=== PATIENT | male | born 1940 | race Hispanic/Latino ===

== ENCOUNTER 2017-09-05 11:37 | Emergency (ER) | payer MEDICARE ==
[~2017-09-05] VITALS: Ht 165.1 cm; Wt 64.0 kg
[~2017-09-05 11:37] MED LIST: BLOOD SUGAR MED; CARVEDILOL12.5 MG PO; DEXILANT; DEXILANT60 MG PO; FLOMAX0.4 MG PO; GABAPENTIN300 MG PO; Janumet PO; LANTUS100 UNIT/2 SQ; LEVAQUIN500 MG PO; SIMVASTATIN40 MG PO; TYLENOL WITH C1 EACH PO; Z.0.FOLIC ACID1 MG PO; Z.0.METHOTREXATE2.5 PO; Z.1.FERROUS SULFAT32 PO
[2017-09-05] MEDS ORDERED: SODIUM CHLORIDE 0.9% 1000ML 1,000 ML IV ONE ×2 (12:00→13:45)
[2017-09-05] MEDS ORDERED: MEROPENEM 1GM 100 ML IV ONE (12:15)
[2017-09-05 12:24] LABS: BASOPHILS % 0.2 % (0.0-1.0); HEMATOCRIT 30.8 % (38.2-49.6); HEMOGLOBIN 10.2 g/dL (14.0-18.0); LYMPHOCYTES # (AUTO) 0.7 (1.0-3.2); LYMPHOCYTES % 12.2 % (18.0-39.1); MEAN CORPUSCULAR HEMOGLOBIN 29.3 pg (28-32); MEAN CORPUSCULAR HGB CONC 33.1 g/dL (31-35); MEAN CORPUSCULAR VOLUME 88.5 fL (81-99); MONOCYTES # (AUTO) 0.3 (0.2-0.8); MONOCYTES % 5.9 % (4.4-11.3); NEUTROPHILS # (AUTO) 4.7 (2.1-6.9); NEUTROPHILS % 81.4 % (38.7-80.0); PLATELET COUNT 165 x10e3/uL (140-360); RED BLOOD COUNT 3.48 x10e6/uL (4.3-5.7); RED CELL DISTRIBUTION WIDTH 13.8 % (11.7-14.4)
[2017-09-05 12:41] LABS: ALANINE AMINOTRANSFERASE 19 IU/L (0-55); ALBUMIN 2.8 g/dL (3.5-5.0); ALBUMIN/GLOBULIN RATIO 0.7 (0.8-2.0); ALKALINE PHOSPHATASE 75 IU/L (40-150); ANION GAP 12.4 mmol/L (8-16); BLOOD UREA NITROGEN 11 mg/dL (7-26); BUN/CREATININE RATIO 13 (6-25); CALCIUM 9.2 mg/dL (8.4-10.2); CARBON DIOXIDE 20 mmol/L (22-29); CHLORIDE 104 mmol/L (98-107); CHOL/HDL RATIO 2.9 (3.9-4.7); CHOLESTEROL 99 MD/DL (0-199); CREATININE, SERUM 0.88 mg/dL (0.72-1.25); EST GLOMERULAR FILTRATION RATE > 60 ML/MIN (60-); GLUCOSE 245 mg/dL (74-118); HDL CHOLESTEROL 34 MG/DL (40-60); LDL CHOLESTEROL 48 MG/DL (60-130); POTASSIUM 3.4 mmol/L (3.5-5.1); SODIUM 133 mmol/L (136-145); TRIGLYCERIDES 83 MG/DL (0-149)
[2017-09-05] MEDS ORDERED: MEROPENEM 1 GM VIAL IV SCH ×2 (12:45→13:00)
[2017-09-05 13:13] LABS: HYPOCHROMASIA MODERATE; LYMPHOCYTES % (MANUAL) 9 % (19-48); MONOCYTES % (MANUAL) 6 % (3.4-9.0); MYELOCYTES % (MANUAL) 1 % (0-0); NEUTROPHILS % (MANUAL) 84 % (40-74); PLATELET ESTIMATE ADEQUATE; PLATELET MORPHOLOGY COMMENT NORMAL; RBC MORPHOLOGY COMMENT NORMAL
[2017-09-05 14:27] LABS: BILIRUBIN,URINE NEGATIVE (NEGATIVE); CLARITY,URINE CLEAR (CLEAR); COLOR,URINE YELLOW (YELLOW); KETONES,URINE TRACE (NEGATIVE); LEUKOCYTE ESTERASE ,URINE NEGATIVE (NEGATIVE); NITRITE,URINE NEGATIVE (NEGATIVE); PROTEIN,URINE DIPSTICK NEGATIVE (NEGATIVE); URINE UROBILINOGEN 0.2 mg/dL (0.2 - 1)
[2017-09-05 14:40] LABS: MUCUS,URINE RARE (RARE); WBC,URINE (MAN) 0-5 /HPF (0-5)
--- NOTE | 2017-09-05 15:56 | Diagnostic Imaging Report ---
History:Fall, hit the head Comparison studies:None Technique: Axial images were obtained from the skull base to the vertex. Coronal and sagittal images reconstructed from the axial data. Intravenous contrast: None Findings: Scalp/skull: No abnormalities. Extra-axial spaces: No masses. No fluid collections. Brain sulci: Moderately prominent. Ventricles: Mild compensatory dilatation. No hydrocephalus. Parenchyma: Few hypodensities in the supratentorial white matter are small vessel ischemic changes. Left subinsular small chronic lacunar infarct No masses, hemorrhage, acute or chronic cortical vascular insults. Sellar/suprasellar region: No abnormalities. Craniocervical junction: Patent foramen magnum. No Chiari one malformation. Incidental findings: Atherosclerotic calcifications in the carotid siphons . Impression: No acute abnormalities. Chronic findings: 1. Moderate generalized volume loss. 2. Mild supratentorial white matter small vessel ischemic changes. Signed by: DR Parth Osorio M.D. on 09/05/2017 3:52 PM
[2017-09-05 16:09] VITALS: BP 108/82
== END 2017-09-05 18:11 | disposition home or self-care (01) ==
LOC: ER 11:37
DX: E86.0 Dehydration (principal); D63.8 Anemia in other chronic diseases classified elsewhere; E87.6 Hypokalemia; E11.9 Type 2 diabetes mellitus without complications; Z79.4 Long term (current) use of insulin; R35.0 Frequency of micturition; R30.0 Dysuria
CPT/HCPCS: 36415; 70450; 80053; 80061; 81001; 83036; 85025; 86850; 86900; 87040; 87086; 99284; J2185 ×2; J7030

== ENCOUNTER 2018-02-13 15:05 | Emergency (ER) | payer MEDICARE ==
[~2018-02-13] VITALS: Ht 165.1 cm; Wt 64.0 kg
--- OUTSIDE RECORDS SUMMARY | 2018-02-13 15:11 | XMS REPORT ---
Author Author [facility] Address Unknown Phone Unavailable Care Team Providers Care Second Grade Teacher Name Role Phone Debra MAGALLON Unavailable Unavailable Problems This patient has no known problems. Allergies, Adverse Reactions, Alerts This patient has no known allergies or adverse reactions. Medications This patient has no known medications. Results Test Description Test Time Test Comments Text Results Atomic Results Result Comments CT BRAIN WO [place] [address] Patient Name: MIKKI MELGAR MR #: [id number] : 1940 Age/Sex: 77/M Req #: [id number] Adm Physician: Ordered by: MARK MAGALLON MD Report #: [id number] Location: ER Room/Bed: Procedure: [id number] CT/CT BRAIN WO Exam Date: Exam Time: REPORT STATUS: Signed History:Fall, hit the head Comparison studies:None Technique: Axial images were obtained from the skull base to the vertex. Coronal and sagittal images reconstructed from the axial data. Intravenous contrast: None Findings: Scalp/skull: No abnormalities. Extra-axial spaces: No masses. No fluid collections. Brain sulci: Moderately prominent. Ventricles: Mild compensatory dilatation. No hydrocephalus. Parenchyma: Few hypodensities in the supratentorial white matter are small vessel ischemic changes. Left subinsular small chronic lacunar infarct No masses, hemorrhage, acute or chronic cortical vascular insults. Sellar/suprasellar region: No abnormalities. Craniocervical junction: Patent foramen magnum. No Chiari one malformation. Incidental findings: Atherosclerotic calcifications in the carotid siphons . Impression: No acute abnormalities. Chronic findings: 1. Moderate generalized volume loss. 2. Mild supratentorial white matter small vessel ischemic changes. Signed by: DR Parth Osorio M.D. on 09/05/2017 3:52 PM Dictated By: PARTH NGUYỄN MD [id number] Transcribed By: CALEB on 09/05/17 0249 COPY TO: MARK MAGALLON MD
[2018-02-13 17:33] LABS: BASOPHILS % 0.3 % (0.0-1.0); EOSINOPHILS # (AUTO) 0.2 (0.0-0.4); EOSINOPHILS % 2.7 % (0.0-6.0); HEMATOCRIT 29.3 % (38.2-49.6); HEMOGLOBIN 9.3 g/dL (14.0-18.0); LYMPHOCYTES # (AUTO) 2.7 (1.0-3.2); LYMPHOCYTES % 35.3 % (18.0-39.1); MEAN CORPUSCULAR HEMOGLOBIN 26.6 pg (28-32); MEAN CORPUSCULAR HGB CONC 31.7 g/dL (31-35); MEAN CORPUSCULAR VOLUME 83.7 fL (81-99); MONOCYTES # (AUTO) 0.5 (0.2-0.8); MONOCYTES % 6.9 % (4.4-11.3); NEUTROPHILS # (AUTO) 4.2 (2.1-6.9); NEUTROPHILS % 54.4 % (38.7-80.0); PLATELET COUNT 253 x10e3/uL (140-360); RED CELL DISTRIBUTION WIDTH 15.9 % (11.7-14.4)
[2018-02-13 17:48] LABS: ALANINE AMINOTRANSFERASE 17 IU/L (0-55); ALBUMIN 3.9 g/dL (3.5-5.0); ALKALINE PHOSPHATASE 111 IU/L (40-150); ANION GAP 13.2 mmol/L (8-16); BLOOD UREA NITROGEN 12 mg/dL (7-26); BUN/CREATININE RATIO 15 (6-25); CALCIUM 9.7 mg/dL (8.4-10.2); CARBON DIOXIDE 24 mmol/L (22-29); CHLORIDE 104 mmol/L (98-107); CREATINE KINASE 64 IU/L (30-200); EST GLOMERULAR FILTRATION RATE > 60 ML/MIN (60-); GLUCOSE 113 mg/dL (74-118); POTASSIUM 4.2 mmol/L (3.5-5.1); SODIUM 137 mmol/L (136-145)
--- NOTE | 2018-02-13 19:00 | Diagnostic Imaging Report ---
EXAMINATION: CHEST 2 VIEWS INDICATION: Left mid and lower back pain and pelvic pain. ^fall ^[id number] ^[id number] COMPARISON: None FINDINGS: PA and lateral views TUBES and LINES: None. LUNGS: Lungs are well inflated. Lungs are clear. There is no evidence of pneumonia or pulmonary edema. PLEURA: No pleural effusion or pneumothorax. HEART AND MEDIASTINUM: The cardiomediastinal silhouette is unremarkable. BONES AND SOFT TISSUES: No acute osseous lesion. Soft tissues are unremarkable. UPPER ABDOMEN: No free air under the diaphragm. There are cholecystectomy clips. IMPRESSION: No acute thoracic abnormality. Signed by: DR. José Miguel Mark MD on 02/13/2018 6:56 PM
[2018-02-13 20:52] VITALS: BP 171/81
[2018-03-18] MEDS ORDERED: GLIPIZIDE ER10 MG PO (11:24)
[2018-03-18] MEDS ORDERED: ALLEGRA ALLERGY60 MG PO (11:24)
[2018-03-18] MEDS ORDERED: LIPITOR10 MG PO (11:25)
[2018-03-18] MEDS ORDERED: LANTUS 3ML100 UNITS/ SQ (11:25)
[2018-03-18] MEDS ORDERED: LOSARTAN POTASS50 MG PO (11:26)
[2018-03-18] MEDS ORDERED: MAGNESIUM OXID500 MG PO (11:26)
[2018-03-18] MEDS ORDERED: METFORMIN HCL1000 MG PO (11:27)
[2018-03-18] MEDS ORDERED: TRAZODONE HCL50 MG PO (11:27)
== END 2018-02-13 20:56 | disposition home or self-care (01) ==
LOC: ER 15:05
DX: R05 Cough (principal); K59.00 Constipation, unspecified; E11.9 Type 2 diabetes mellitus without complications; E78.5 Hyperlipidemia, unspecified; M54.9 Dorsalgia, unspecified; G89.29 Other chronic pain; Z85.46 Personal history of malignant neoplasm of prostate
CPT/HCPCS: 36415; 71046; 80053; 82550; 82553; 84484; 85025; 93005; 99284

== ENCOUNTER → 2018-03-19 | Day surgery (SDC) | payer MEDICARE ==
[2018-03-18 11:45] LABS: BASOPHILS % 0.3 % (0.0-1.0); EOSINOPHILS # (AUTO) 0.1 (0.0-0.4); EOSINOPHILS % 0.7 % (0.0-6.0); HEMATOCRIT 30.4 % (38.2-49.6); HEMOGLOBIN 9.7 g/dL (14.0-18.0); LYMPHOCYTES # (AUTO) 2.3 (1.0-3.2); LYMPHOCYTES % 31.8 % (18.0-39.1); MEAN CORPUSCULAR HEMOGLOBIN 26.7 pg (28-32); MEAN CORPUSCULAR HGB CONC 31.9 g/dL (31-35); MEAN CORPUSCULAR VOLUME 83.7 fL (81-99); MONOCYTES # (AUTO) 0.4 (0.2-0.8); MONOCYTES % 6.2 % (4.4-11.3); NEUTROPHILS # (AUTO) 4.3 (2.1-6.9); NEUTROPHILS % 60.7 % (38.7-80.0); PLATELET COUNT 217 x10e3/uL (140-360); RED BLOOD COUNT 3.63 x10e6/uL (4.3-5.7); RED CELL DISTRIBUTION WIDTH 17.5 % (11.7-14.4)
[2018-03-18 12:01] LABS: ANION GAP 15.3 mmol/L (8-16); BLOOD UREA NITROGEN 14 mg/dL (7-26); BUN/CREATININE RATIO 17 (6-25); CALCIUM 9.8 mg/dL (8.4-10.2); CARBON DIOXIDE 23 mmol/L (22-29); CHLORIDE 105 mmol/L (98-107); CREATININE, SERUM 0.81 mg/dL (0.72-1.25); EST GLOMERULAR FILTRATION RATE > 60 ML/MIN (60-); GLUCOSE 117 mg/dL (74-118); POTASSIUM 4.3 mmol/L (3.5-5.1); SODIUM 139 mmol/L (136-145)
--- NOTE | 2018-03-18 12:26 | Diagnostic Imaging Report ---
EXAM: CHEST 2 VIEWS, PA and lateral DATE: 03/18/2018 11:17 AM Time stamp on exam: 11:25 AM INDICATION: Preoperative COMPARISON: None FINDINGS: LINES/TUBES: None LUNGS: No consolidations or edema. PLEURA: No effusions or pneumothorax. HEART AND MEDIASTINUM: Normal size and contour. Tortuous thoracic aorta. BONES AND SOFT TISSUES: No acute findings. IMPRESSION: No acute thoracic abnormality. Signed by: Dr. Vijay Zaldivar DO on 03/18/2018 12:23 PM
[~2018-03-19] MED LIST changes: +ALLEGRA ALLERGY60 MG PO; +BELLADONNA/OPIUM 60 MG SUPP PR ONE; +BOTULINUM TOXIN TYPE A 100 UNIT VIAL IM ONE; +CEFTRIAXONE SOD 1 GM VIAL ONE; +FENTANYL CITRATE/PF 100MCG/2 ML INJ ONE; +GLIPIZIDE ER10 MG PO; +HYDRALAZINE HCL 20 MG/ML VIAL ONE; +IOPAMIDOL 610MG/1ML 300 MG/ML VIAL IV ONE; +LANTUS 3ML100 UNITS/ SQ; +LIDOCAINE HCL 2% LOCAL INJ 5 ML SDV VIAL INJ ONE; +LIPITOR10 MG PO; +LOSARTAN POTASS50 MG PO; +MAGNESIUM OXID500 MG PO; +METFORMIN HCL1000 MG PO; +ONDANSETRON HCL INJ 2 MG/ML VIAL ONE; +PROPOFOL IV EMULSION 10 MG/ML 20 ML VIAL ONE; +SEVOFLURANE INHAL SOLN 250 ML PEN BTL ONE; +TRAZODONE HCL50 MG PO
[2018-03-19 12:45] VITALS: BP 168/67
--- NOTE | 2018-03-20 07:51 | Operative Report ---
DATE OF PROCEDURE: March 19, 2018 PREOPERATIVE DIAGNOSES 1. Refractory urge incontinence. 2. Hyperreflexic bladder. POSTOPERATIVE DIAGNOSES 1. Refractory urge incontinence. 2. Hyperreflexic bladder. OPERATIONS PERFORMED 1. Cystourethroscopy with bilateral ureteral catheterization and retrograde ureteropyelography (separately performed to evaluate the upper tract in light of the overactive bladder). 2. Interpretation of retrograde ureteropyelography. 3. Supervision of fluoroscopy; no radiologist was present. 4. Cystourethroscopy with intravesical injection of 100 units of Botox. ANESTHESIA: General. COMPLICATIONS: None. CLINICAL SUMMARY: Tye Sanchez is a 77-year-old man who is status post radical prostatectomy for what proved to be locally advanced prostate cancer. The patient has been on hormonal therapy, and from a cancer perspective, he has done relatively well. The patient has refractory urge incontinence. He has had an artificial urinary sphincter implanted with significant improvement of his incontinence, but he still has persistent incontinence. Options were discussed, he elected proceed with Botox as planned. He is aware of the risks of bleeding, infection, injury to adjacent structures, need for additional procedures, and elected to proceed. OPERATIVE PROCEDURE IN DETAIL: Informed consent verified. Tye Sanchez was properly identified and taken to the operating room, placed on the cystoscopy table in supine position. Anesthesia was uneventfully begun. Patient was then carefully and gently re-positioned in dorsal lithotomy position with all pressure points well padded. His genitalia were prepared and draped in usual sterile fashion. The 21-Bengali cystoscope sheath with a visual obturator in place was atraumatically inserted in patient's urethra and was guided down the normal distal urethra to the region of the artificial urinary sphincter. The urethra appeared coapted. We activated the sphincter and locked it open. This allowed us to place the cystoscope sheath through the sphincter region without injuring the urethra. We went through the urethrovesical anastomosis, which was wide open and panendoscopy of urinary bladder revealed normally positioned ureteral orifices. There were no tumors, no stones, and no diverticula. There were no suspicious lesions. An 8-Bengali catheter was used to cannulate each ureter and retrograde ureteral pyelograms were performed. Interpretation of retrograde ureteropyelography: Contrast was instilled in retrograde fashion bilaterally. There were no tumors, no stones, no diverticula, and no obstruction. Drainage was observed bilaterally fluoroscopically. Botox 100 units were dissolved in 10 mL of sterile saline. We then proceeded with injecting 0.5 mL aliquots in an even distribution throughout the supratrigonal bladder. Patient's bladder was drained. The cystoscope was withdrawn. The artificial urinary sphincter was reactivated. A belladonna and opium suppository was placed and the patient was uneventfully reversed from anesthesia and taken to the recovery room in stable condition. There were no complications to the procedure. He tolerated the procedure well. Explicit postop instructions were given. We will follow the patient up in office. Job#: [id number] [facility] cc:DR ROBERT DUPREE
== END | disposition home or self-care (01) ==
LOC: OR 08:03
PROVIDERS: ATTEND Urology
DX: N39.41 Urge incontinence (principal); N32.81 Overactive bladder; Z85.46 Personal history of malignant neoplasm of prostate; Z90.79 Acquired absence of other genital organ(s); Z87.440 Personal history of urinary (tract) infections; I10 Essential (primary) hypertension; E11.9 Type 2 diabetes mellitus without complications; Z79.84 Long term (current) use of oral hypoglycemic drugs; K21.9 Gastro-esophageal reflux disease without esophagitis; K58.9 Irritable bowel syndrome, unspecified; K44.9 Diaphragmatic hernia without obstruction or gangrene; R07.9 Chest pain, unspecified; F32.9 Major depressive disorder, single episode, unspecified; F03.90 Unspecified dementia, unspecified severity, without behavioral disturbance, psychotic disturbance, mood disturbance, and anxiety; Z01.810 Encounter for preprocedural cardiovascular examination; Z01.812 Encounter for preprocedural laboratory examination; Z87.891 Personal history of nicotine dependence
CPT/HCPCS: 36415 ×2; 52005; 52287; 71046; 74420; 80048; 82948; 85025; 93005; J0360; J0587; J0696; J2001; J2405; J2704; Q9967

== ENCOUNTER → 2018-11-12 | Day surgery (SDC) | payer MEDICARE ==
[2018-11-11 12:11] LABS: BASOPHILS % 0.4 % (0.0-1.0); EOSINOPHILS # (AUTO) 0.1 (0.0-0.4); EOSINOPHILS % 2.1 % (0.0-6.0); HEMATOCRIT 31.7 % (38.2-49.6); HEMOGLOBIN 9.6 g/dL (14.0-18.0); LYMPHOCYTES # (AUTO) 1.6 (1.0-3.2); LYMPHOCYTES % 33.7 % (18.0-39.1); MEAN CORPUSCULAR HEMOGLOBIN 24.7 pg (28-32); MEAN CORPUSCULAR HGB CONC 30.3 g/dL (31-35); MEAN CORPUSCULAR VOLUME 81.5 fL (81-99); MONOCYTES # (AUTO) 0.4 (0.2-0.8); MONOCYTES % 8.2 % (4.4-11.3); NEUTROPHILS # (AUTO) 2.6 (2.1-6.9); NEUTROPHILS % 55.4 % (38.7-80.0); PLATELET COUNT 224 x10e3/uL (140-360); RED BLOOD COUNT 3.89 x10e6/uL (4.3-5.7)
[2018-11-11 12:24] LABS: ANION GAP 12.5 mmol/L (8-16); BLOOD UREA NITROGEN 15 mg/dL (7-26); BUN/CREATININE RATIO 19 (6-25); CALCIUM 9.2 mg/dL (8.4-10.2); CARBON DIOXIDE 24 mmol/L (22-29); CHLORIDE 104 mmol/L (98-107); CREATININE, SERUM 0.77 mg/dL (0.72-1.25); EST GLOMERULAR FILTRATION RATE > 60 ML/MIN (60-); GLUCOSE 257 mg/dL (74-118); POTASSIUM 4.5 mmol/L (3.5-5.1); SODIUM 136 mmol/L (136-145)
[~2018-11-12] MED LIST changes: -BELLADONNA/OPIUM 60 MG SUPP PR ONE; -CEFTRIAXONE SOD 1 GM VIAL ONE; +CEFTRIAXONE SOD 1 GM/NS 50 ML 50 ML IV ONE; +FERROUS SULFAT325 MG; +GABAPENTIN400 MG PO; +GLYCOPYRROLATE INJ 1MG/ 5 ML SYR ONE; -HYDRALAZINE HCL 20 MG/ML VIAL ONE; +MIDAZOLAM HCL 2 MG/2 ML VIAL ONE; -ONDANSETRON HCL INJ 2 MG/ML VIAL ONE; +ONDANSETRON HCL INJ 2MG/ML 2ML 2 MG/ML VIAL ONE
[2018-11-12 12:20] VITALS: BP 178/88
--- NOTE | 2019-01-21 06:43 | Operative Report ---
DATE OF PROCEDURE: 11/12/2018 SURGEON: José Luis Ramirez MD PREOPERATIVE DIAGNOSES: 1. Refractory urge incontinence. 2. Urinary tract infections. POSTOPERATIVE DIAGNOSES: 1. Refractory urge incontinence. 2. Urinary tract infections. OPERATIONS PERFORMED: 1. Cystourethroscopy with bilateral ureteral catheterization and retrograde ureteropyelography (separately performed for the urinary tract infections). 2. Interpretation of retrograde ureteropyelography. 3. Supervision of fluoroscopy, no radiologist present. 4. Cystourethroscopy with intravesical injection of Botox. ANESTHESIA: General. COMPLICATIONS: None. CLINICAL SUMMARY: Tye Sanchez is an 78-year-old man with severe incontinence. He has responded to Botox in the past. He does utilize an artificial urinary sphincter. He has a longstanding urological history. Please refer to his voluminous chart for details. The patient was brought for the above procedures. He is aware of the risks and the risks, alternatives, and benefits having had this procedure before. OPERATIVE PROCEDURE IN DETAIL: Informed consent was verified. Tye Sanchez was properly identified and taken to the operating room, placed on the cystoscopy table in supine position. Anesthesia was uneventfully begun. The patient was then carefully gently repositioned in the dorsal lithotomy position with all pressure points well padded. His genitalia were prepared and draped in usual sterile fashion. The artificial urinary sphincter was activated in the patient during this case. The cystoscope was inserted in the patient's urethra and guided down the unremarkable urethra to the bulbar region, where there was artificial urinary sphincter cuff. We activated the cuff. The cuff opened. We then easily went through this cuff region without any significant resistance. We went through the wide-open urethrovesical anastomosis. We went to the patient's bladder. Panendoscopy revealed no suspicious mucosal lesions, no tumors, no stones, and no diverticula. The ureteral catheter was used to cannulate each ureter and retrograde ureteropyelograms were performed. Interpretation of retrograde ureteropyelography contrast was instilled in retrograde fashion bilaterally. There were no tumors, no stones, and no diverticula. Unobstructed drainage was observed bilaterally fluoroscopically. Multiple hemoclips were noted. Botox was dissolved in sterile saline and was injected in 1 cc aliquots in an even distribution throughout the supratrigonal bladder. The needles were then withdrawn. The cystoscope was then withdrawn under direct vision. The patient's artificial urinary sphincter cuff was allowed to reactivate and then the patient was uneventfully reversed from anesthesia and taken to recovery room in stable condition. There were no complications to the procedure. He tolerated the procedure well. Ongoing urological followup will be continued. MD MAURICE Wisdom/JASE /[id number] cc: Robin Oconnor
== END | disposition home or self-care (01) ==
LOC: OR 08:55
PROVIDERS: ATTEND Urology
DX: N39.46 Mixed incontinence (principal); N39.0 Urinary tract infection, site not specified; N32.81 Overactive bladder; E29.1 Testicular hypofunction; R81 Glycosuria; N28.1 Cyst of kidney, acquired; N35.919 Unspecified urethral stricture, male, unspecified site; R80.9 Proteinuria, unspecified; I10 Essential (primary) hypertension; E11.9 Type 2 diabetes mellitus without complications; K21.9 Gastro-esophageal reflux disease without esophagitis; R00.1 Bradycardia, unspecified; Z01.810 Encounter for preprocedural cardiovascular examination; Z01.812 Encounter for preprocedural laboratory examination; Z79.84 Long term (current) use of oral hypoglycemic drugs; Z79.4 Long term (current) use of insulin; Z79.82 Long term (current) use of aspirin; Z85.46 Personal history of malignant neoplasm of prostate
CPT/HCPCS: 36415 ×2; 52005; 52287; 74420; 80048; 82948; 85025; 93005; C1758; J0587; J0696; J2001; J2405; J2704; J3010; J3490; Q9967; J2250

== ENCOUNTER → 2019-01-01 | Day surgery (SDC) | payer MEDICARE ==
[~2019-01-01] MED LIST changes: -BOTULINUM TOXIN TYPE A 100 UNIT VIAL IM ONE; -CEFTRIAXONE SOD 1 GM/NS 50 ML 50 ML IV ONE; -FENTANYL CITRATE/PF 100MCG/2 ML INJ ONE; -GLYCOPYRROLATE INJ 1MG/ 5 ML SYR ONE; +INSULIN REGULAR, HUMAN 100 UNIT/1 ML 3ML VIAL ONE; -IOPAMIDOL 610MG/1ML 300 MG/ML VIAL IV ONE; -MIDAZOLAM HCL 2 MG/2 ML VIAL ONE; -ONDANSETRON HCL INJ 2MG/ML 2ML 2 MG/ML VIAL ONE; -PROPOFOL IV EMULSION 10 MG/ML 20 ML VIAL ONE; +PROPOFOL IV EMULSION 10 MG/ML 50 ML VIAL ONE; -SEVOFLURANE INHAL SOLN 250 ML PEN BTL ONE
--- OUTSIDE RECORDS SUMMARY | 2019-01-01 08:10 | XMS REPORT | Continuity of Care Document ---
Author Author [facility] Address Unknown Phone Unavailable Care Team Providers Care Language Interpreter Name Role Phone [facility] [employer] Unavailable Unavailable Problems No Data Provided for This Section Medications Medication Details Route Status Patient Instructions Ordering Provider Order Date Source Carvedilol 12.5 Mg Tablet, 12.5 Mg Oral Daily Active 05/26/2014 [facility] Dexlansoprazole (Dexilant) 60 Mg Cap., 60 Mg Oral Daily Active 05/26/2014 [facility] Ferrous Sulfate 325 Mg Tablet.dr, 325 Mg Oral Twice A Day Active 05/26/2014 [facility] Folic Acid 1 Mg Tablet, 1 Mg Oral Daily Active 05/26/2014 [facility] Methotrexate Sodium (Methotrexate) 2.5 Mg Tab.ds.pk, 2.5 Mg Oral Bedtime Active 05/26/2014 [facility] Acetaminophen With Codeine (Tylenol With Codeine #3 Tablet) 1 Each Tablet Every 4 Hours as needed for Pain Active [facility] Gabapentin 300 Mg Capsule Daily Active [facility] Insulin Glargine,Hum.rec.anlog (Lantus) 100 Unit/1 Ml Cartridge Daily Active [facility] Janumet Daily Active [facility] Levofloxacin (Levaquin) 500 Mg Tablet Daily Active [facility] Simvastatin 40 Mg Tablet Daily Active [facility] Tamsulosin Hcl (Flomax*) 0.4 Mg Cap Daily Active [facility] Allergies, Adverse Reactions, Alerts No Known Medication Allergies Immunizations No Data Provided for This Section Results Order Name Results Value Reference Range Date Interpretation Comments Source Automated urine sediment leukocyte count by microscopy (number/high power field) Automated urine sediment leukocyte count by microscopy (number/high power field) <5 0 - 5 09/05/2017 [facility] Bacteria detection in urine sediment by light microscopy Bacteria detection in urine sediment by light microscopy NONE NONE 09/05/2017 [facility] Epithelial cells detection in urine sediment by light microscopy Epithelial cells detection in urine sediment by light microscopy NONE NONE 09/05/2017 [facility] Erythrocytes detection in urine sediment by light microscopy Erythrocytes detection in urine sediment by light microscopy <20 0 - 5 09/05/2017 [facility] Mucus detection in urine sediment by light microscopy Mucus detection in urine sediment by light microscopy RARE RARE 09/05/2017 [facility] Specific gravity of Urine by Test strip Specific gravity of Urine by Test strip 1.010 1.010 - 1.025 09/05/2017 [facility] Urine clarity Urine clarity CLEAR CLEAR 09/05/2017 [facility] Urine color determination Urine color determination YELLOW YELLOW 09/05/2017 [facility] Urine erythrocytes detection Urine erythrocytes detection TRACE NEGATIVE 09/05/2017 [facility] Urine glucose detection Urine glucose detection NEGATIVE NEGATIVE 09/05/2017 [facility] Urine ketones detection by automated test strip Urine ketones detection by automated test strip TRACE NEGATIVE 09/05/2017 [facility] Urine leukocyte esterase detection by dipstick Urine leukocyte esterase detection by dipstick NEGATIVE NEGATIVE 09/05/2017 [facility] Urine nitrite detection Urine nitrite detection NEGATIVE NEGATIVE 09/05/2017 [facility] Urine pH measurement by automated test strip Urine pH measurement by automated test strip 6 5 - 7 09/05/2017 [facility] Urine protein measurement by test strip (mass/volume) Urine protein measurement by test strip (mass/volume) NEGATIVE NEGATIVE 09/05/2017 [facility] Urine total bilirubin measurement (mass/volume) Urine total bilirubin measurement (mass/volume) NEGATIVE NEGATIVE 09/05/2017 [facility] Urine urobilinogen measurement by test strip (mass/volume) Urine urobilinogen measurement by test strip (mass/volume) 0.2 0.2 - 1 09/05/2017 [facility] Automated blood basophil count (count/volume) Automated blood basophil count (count/volume) 0.0 0.0 - 0.1 09/05/2017 [facility] Automated blood basophil count as percentage of total leukocytes Automated blood basophil count as percentage of total leukocytes 0.2 0.0 - 1.0 09/05/2017 [facility] Automated blood eosinophil count Automated blood eosinophil count 0.0 0.0 - 0.4 09/05/2017 [facility] Automated blood eosinophil count as percentage of total leukocytes Automated blood eosinophil count as percentage of total leukocytes 0.0 0.0 - 6.0 09/05/2017 [facility] Automated blood hematocrit (volume fraction) Automated blood hematocrit (volume fraction) 30.8 38.2 - 49.6 09/05/2017 [facility] Automated blood lymphocyte count as percentage ot total leukocytes Automated blood lymphocyte count as percentage ot total leukocytes 12.2 18.0 - 39.1 09/05/2017 [facility] Automated blood monocyte count as percentage of total leukocytes Automated blood monocyte count as percentage of total leukocytes 5.9 4.4 - 11.3 09/05/2017 [facility] Automated blood neutrophil count Automated blood neutrophil count 4.7 2.1 - 6.9 09/05/2017 [facility] Automated blood platelet count (count/volume) Automated blood platelet count (count/volume) 165 140 - 360 09/05/2017 [facility] Automated blood segmented neutrophil count as percentage of total leukocytes Automated blood segmented neutrophil count as percentage of total leukocytes 81.4 38.7 - 80.0 09/05/2017 [facility] Automated erythrocyte mean corpuscular hemoglobin (mass per erythrocyte) Automated erythrocyte mean corpuscular hemoglobin (mass per erythrocyte) 29.3 28 - 32 09/05/2017 [facility] Automated erythrocyte mean corpuscular hemoglobin concentration measurement (mass/volume) Automated erythrocyte mean corpuscular hemoglobin concentration measurement (mass/volume) 33.1 31 - 35 09/05/2017 [facility] Automated erythrocyte mean corpuscular volume Automated erythrocyte mean corpuscular volume 88.5 81 - 99 09/05/2017 [facility] Blood erythrocytes automated count (number/volume) Blood erythrocytes automated count (number/volume) 3.48 4.3 - 5.7 09/05/2017 [facility] Blood hemoglobin measurement (moles/volume) Blood hemoglobin measurement (moles/volume) 10.2 14.0 - 18.0 09/05/2017 [facility] Blood hypochromia detection by light microscopy Blood hypochromia detection by light microscopy MODERATE 09/05/2017 [facility] Blood leukocytes automated count (number/volume) Blood leukocytes automated count (number/volume) 5.73 4.8 - 10.8 09/05/2017 [facility] Blood lymphocytes count (number/volume) Blood lymphocytes count (number/volume) 0.7 1.0 - 3.2 09/05/2017 [facility] Blood monocytes automated count (number/volume) Blood monocytes automated count (number/volume) 0.3 0.2 - 0.8 09/05/2017 [facility] Blood platelets count by estimate (number/volume) Blood platelets count by estimate (number/volume) ADEQUATE 09/05/2017 [facility] Estimated glomerular filtration rate (GFR) determination Estimated glomerular filtration rate (GFR) determination >60 60 09/05/2017 [facility] Glucose measurement Glucose measurement 245 74 - 118 09/05/2017 [facility] Manual blood lymphocytes/100 leukocytes Manual blood lymphocytes/100 leukocytes 9 19 - 48 09/05/2017 [facility] Manual blood monocytes/100 leukocytes Manual blood monocytes/100 leukocytes 6 3.4 - 9.0 09/05/2017 [facility] Manual blood myelocytes/100 leukocytes Manual blood myelocytes/100 leukocytes 1 0 - 0 09/05/2017 [facility] Manual blood neutrophils/100 leukocytes Manual blood neutrophils/100 leukocytes 84 40 - 74 09/05/2017 [facility] Plasma globulin measurement (mass/volume) Plasma globulin measurement (mass/volume) 4.2 2.3 - 3.5 09/05/2017 [facility] Platelet morphology Platelet morphology NORMAL 09/05/2017 [facility] RBC morphology RBC morphology NORMAL 09/05/2017 [facility] Serum or plasma alanine aminotransferase measurement (enzymatic activity/volume) Serum or plasma alanine aminotransferase measurement (enzymatic activity/volume) 19 0 - 55 09/05/2017 [facility] Serum or plasma albumin measurement (mass/volume) Serum or plasma albumin measurement (mass/volume) 2.8 3.5 - 5.0 09/05/2017 [facility] Serum or plasma albumin/globulin mass ratio Serum or plasma albumin/globulin mass ratio 0.7 0.8 - 2.0 09/05/2017 [facility] Serum or plasma alkaline phosphatase measurement (enzymatic activity/volume) Serum or plasma alkaline phosphatase measurement (enzymatic activity/volume) 75 40 - 150 09/05/2017 [facility] Serum or plasma anion gap Serum or plasma anion gap 12.4 8 - 16 09/05/2017 [facility] Serum or plasma calcium measurement (mass/volume) Serum or plasma calcium measurement (mass/volume) 9.2 8.4 - 10.2 09/05/2017 [facility] Serum or plasma carbon dioxide, total measurement (moles/volume) Serum or plasma carbon dioxide, total measurement (moles/volume) 20 22 - 29 09/05/2017 [facility] Serum or plasma chloride measurement (moles/volume) Serum or plasma chloride measurement (moles/volume) 104 98 - 107 09/05/2017 [facility] Serum or plasma cholesterol in HDL measurement (mass/volume) Serum or plasma cholesterol in HDL measurement (mass/volume) 34 40 - 60 09/05/2017 [facility] Serum or plasma cholesterol in LDL measurement (mass/volume) Serum or plasma cholesterol in LDL measurement (mass/volume) 48 60 - 130 09/05/2017 [facility] Serum or plasma cholesterol measurement (mass/volume) Serum or plasma cholesterol measurement (mass/volume) 99 0 - 199 09/05/2017 [facility] Serum or plasma creatinine measurement (mass/volume) Serum or plasma creatinine measurement (mass/volume) 0.88 0.72 - 1.25 09/05/2017 [facility] Serum or plasma potassium measurement (moles/volume) Serum or plasma potassium measurement (moles/volume) 3.4 3.5 - 5.1 09/05/2017 [facility] Serum or plasma protein measurement (mass/volume) Serum or plasma protein measurement (mass/volume) 7.0 6.5 - 8.1 09/05/2017 [facility] Serum or plasma sodium measurement (moles/volume) Serum or plasma sodium measurement (moles/volume) 133 136 - 145 09/05/2017 [facility] Serum or plasma total bilirubin measurement (mass/volume) Serum or plasma total bilirubin measurement (mass/volume) 0.4 0.2 - 1.2 09/05/2017 [facility] Serum or plasma total cholesterol/cholesterol in HDL mass ratio Serum or plasma total cholesterol/cholesterol in HDL mass ratio 2.9 3.9 - 4.7 09/05/2017 [facility] Serum or plasma triglyceride measurement (mass/volume) Serum or plasma triglyceride measurement (mass/volume) 83 0 - 149 09/05/2017 [facility] Serum or plasma urea nitrogen measurement (mass/volume) Serum or plasma urea nitrogen measurement (mass/volume) 11 7 - 26 09/05/2017 [facility] Serum or plasma urea nitrogen/creatinine mass ratio Serum or plasma urea nitrogen/creatinine mass ratio 13 6 - 25 09/05/2017 [facility] Red Cell Distribution Width 13.8 11.7 - 14.4 09/05/2017 [facility] IM GRANULOCYTES % 0.3 0.0 - 1.0 09/05/2017 [facility] Absolute Immature Granulocyte (auto 0.02 0 - 0.1 09/05/2017 [facility] Differential Total Cells Counted 100 09/05/2017 [facility] Hemoglobin A1c Percent 7.3 4.0 - 7.0 09/05/2017 [facility] Aspartate Amino Transf (AST/SGOT) 21 5 - 34 09/05/2017 [facility] Pathology Reports No Data Provided for This Section Diagnostic Reports No Data Provided for This Section Consultation Notes No Data Provided for This Section Discharge Summaries No Data Provided for This Section History and Physicals No Data Provided for This Section Vital Signs No Data Provided for This Section Encounters Location Location Details Encounter Type Encounter Number Reason For Visit Attending Provider ADM Date DC Date Status Source Departed Emergency Room [id number] MARK MAGALLON MD 09/05/2017 09/05/2017 [facility] Procedures Procedure Code Date Perfomer Comments Source Computed tomography of brain without radiopaque contrast [id number] 09/05/2017 [facility] Assessment and Plan No Data Provided for This Section Plan of Care Plan of Care Date Source Discharge Date 09/05/17 6:11pm Disposition HOME, SELF-CARE Condition at Discharge Stable Instructions/Education Provided Anemia Fatigue Hypokalemia Forms Provided Work/School Excuse Prescriptions See Medication Section Referrals [facility]UST Address: [address] [place] [id number] Additional Instructions/Education FOLLOW UP WITH PRIMARY CARE DOCTOR THIS WEEK. TAKE MEDICATION PRESCRIBED. DRINK PLENTY OF FLUIDS TO MAINTAIN HYDRATION. 09/05/2017 [facility] Social History Social History Date Source Social History Problem Response Recorded Date/Time Onset Date Status Hx Psychiatric Problems No 05/26/2014 12:00pm Not Applicable Not Applicable Smoking Status Start Date Stop Date Never Smoker 09/05/2017 [facility] Family History No Data Provided for This Section Advance Directives Order Name Results Value Date Source Advance Directives Advance Directives Directive Response Recorded Date/Time Does the patient have an advance directive? No 05/26/14 12:00pm If yes, is advance directive on file with [facility]? No 05/26/14 12:00pm If not on file with [facility] will patient provide a copy? No 05/26/14 12:00pm Do you have a Directive to Physician? No 09/05/17 12:52pm Do you have a Medical Power of Medicinal Chemist? No 09/05/17 12:52pm Do you have an out of hospital Do Not Resuscitate Order? No 09/05/17 12:52pm Do you have any special needs we should be aware of? No 09/05/17 12:52pm Do you have a support person here with you today? Yes 09/05/17 12:52pm Did patient receive Notice of Privacy Practices? Yes 09/05/17 12:52pm Did patient receive patient rights and responsibilities? Yes 09/05/17 12:52pm 09/05/2017 [facility] Functional Status No Data Provided for This Section
[2019-01-01 09:18] LABS: BASOPHILS % 0.3 % (0.0-1.0); EOSINOPHILS # (AUTO) 0.1 (0.0-0.4); EOSINOPHILS % 1.3 % (0.0-6.0); HEMATOCRIT 36.3 % (38.2-49.6); HEMOGLOBIN 12.5 g/dL (14.0-18.0); LYMPHOCYTES # (AUTO) 2.9 (1.0-3.2); LYMPHOCYTES % 41.8 % (18.0-39.1); MEAN CORPUSCULAR HEMOGLOBIN 30.1 pg (28-32); MEAN CORPUSCULAR HGB CONC 34.4 g/dL (31-35); MEAN CORPUSCULAR VOLUME 87.5 fL (81-99); MONOCYTES # (AUTO) 0.5 (0.2-0.8); MONOCYTES % 7.3 % (4.4-11.3); NEUTROPHILS # (AUTO) 3.4 (2.1-6.9); PLATELET COUNT 233 x10e3/uL (140-360); RED BLOOD COUNT 4.15 x10e6/uL (4.3-5.7)
[2019-01-01 10:20] VITALS: BP 155/75
== END | disposition home or self-care (01) ==
LOC: OR 08:08
PROVIDERS: ATTEND Internal Medicine Gastroenterology
DX: D50.9 Iron deficiency anemia, unspecified (principal); K29.50 Unspecified chronic gastritis without bleeding; K31.89 Other diseases of stomach and duodenum; K57.30 Diverticulosis of large intestine without perforation or abscess without bleeding; K64.8 Other hemorrhoids; Z71.3 Dietary counseling and surveillance; E11.9 Type 2 diabetes mellitus without complications; I10 Essential (primary) hypertension
CPT/HCPCS: 36415; 43239; 45378; 82948; 85025; 88305; 88312; J2001; J2704; J1817